=== PATIENT | female | born 1945 | race Caucasian/White ===

== ENCOUNTER 2024-12-18 15:37 | Outpatient (CLI) | payer MEDICARE, MEDICAID, SELFPAY ==
--- OUTSIDE RECORDS SUMMARY | 2024-08-04 20:00 | XMS_ITS | Continuity of Care Document ---
Author Organization [address] [place] [address] Address [address] [facility] [address] [place] [address] Phone Care Team Providers Care Clam Digger Name Role Phone Jefry Pittman DPM Unavailable Unavailable Allergies, Adverse Reactions, Alerts Substance Reaction Status Criticality morphine Active No Information Medications Medication Instructions Dosage Effective Dates (start - stop) Status Comments senna 8.6 mg tablet - Active cholecalciferol (vitamin D3) 50 mcg (2,000 unit) tablet - Active guaifenesin ER 600 mg tablet, extended release 12 hr - Active ipratropium 0.5 mg-albuterol 3 mg (2.5 mg base)/3 mL nebulization soln - Active Feverall 325 mg rectal suppository - Active ipratropium bromide 0.02 % solution for inhalation - Active acetaminophen 500 mg tablet - Active bisacodyl 5 mg tablet,delayed release - Active loratadine 10 mg tablet - Ac tive Gas Relief Extra Strength 125 mg chewable tablet - Active ergocalciferol (vitamin D2) 1,250 mcg (50,000 unit) capsule - Active Stimulant Laxative Plus 8.6 mg-50 mg tablet - Active Procedures Procedure Date PARING/CUTG B9 HYPRKER LES 1 DEBRIDE NAIL 6 OR MORE Complete Denture - Maxillary Complete Denture - Mandibular Debride mycotic, thick nails 6 or more J House/Extended Care Facility Call Try In Complete Series Of Radiographic Images N Compsve Oral Eval- New/Est Pat 2-Step Imp/Bite SBSQ NF CARE LOW MDM 20 DEBRIDEMENT OF NAIL(S) BY ANY METHOD(S); 6 OR MORE Advance Directives Directive Yes / No Effective Date File Name No Information Encounters Encounter Description Practice Location Reason(s) For Visit Diagnoses Date Provider Providers Copied on Encounter [address] [place] [address], [address] [place] [address], tel:[phone] [facility] Tinea unguiumCorns and callositiesOt her specified peripheral vascular diseases 5 Toya Capps. [address] [place] [address], [address], [place], [place], [id number], . tel:[phone] Referring Provider: Jamin Willett. [address] [place] [address], [id number], tel:[phone] [facility] ear care exam, hearing loss (chief complaint) Encounter for examination of ears and hearing without abnormal findings 5 ELMA Navarrete. Referring Provider: Jamin Roman [address] [place] [address], [address] [place] [address], tel:[phone] [facility] Complete loss of teeth, unspecified cause, unspecified class 5 Kandace Rizo . Referring Provider: Jamin Willett. [address] [place] [address], [place], [id number], tel:[phone] [facility] Tinea unguiumOther specified peripheral vascular diseases [address] [place] [address], [address], [place], [place], [id number], [place]. tel:[phone] Referring Provider: Jamin Willett. [facility], [address] [place] [address] [address], [place], [place], [id number], [place] tel:[phone] [facility] Encounter for dental examination and cleaning without abnormal findingsCompl ete loss of teeth, unspecified cause, unspecified class 5 Kandace Aguirrei. . Referring Provider: Jamin Willett. [facility] [place], [address] [place], [place] [address], [place], [place], [id number], tel:[phone] [facility] Encounter for dental examination and cleaning without abnormal findings 4 Kandace Aguirrei. . Referring Provider: Jamin Willett. [facility] NF CARE LOW MDM 20 [facility] [place], [address] [place], [place] [address], [place], [place], [id number], [place] tel:[phone] [facility] Tinea unguiumOther specified peripheral vascular diseases 4 Skribrian Capps. [address] [facility], [address], [place], [place], [id number], [place]. tel:[phone] Referring Provider: Jamin Willett. [facility], [address] [place], [place] [address], [place], [place], [id number], [place] tel:[phone] [facility] No Information [address] [place] [address], [address], [place], [place], [id number], [place]. tel:[phone] [facility], [address] [place] [address], [place], [place], [id number], [place] tel:[phone] [facility] Tinea unguiumPain in left toe(s)Pain in right toe(s) 8 Asad El. [address] [facility], [address], [place], [address], [place]. Referring Provider: Beau Lindsay. Family History Family Member Type Diagnosis Age At Onset No Information Payers Payer name Insurance type Covered republican ID Authorbetzy diaz(s) Medicare [facility] [id number] Medicaid [facility] [id number] Social History Type Description Quantity Date Captured Comments Alcohol Use Details Unknown Caffeine Use Details Unknown Tobacco Use Status No Information Smoking Status No Information Sex Female Chief Complaint And Reason For Visit No Information Reason For Referral Reason For Referral No Information Plan Of Treatment Date Type Action Status Appointment Viktoriya Montes Medicaid On ly. BOOKED Appointment Viktoriya Montes BOOKED Patient Education Toenail Fungus: Care In structions completed History Of Present Illness Encounter Date Complaint History Of Prese nt Illness No Information Functional Status Date Functional Assessmen t No Information Instructions Date Instruction Additional Infor mation Debride hypertrophic lesion right foot with #15 blade to prevent skin breakdown and for pain relief . Related to Corns and callosities Debridement and redu ction of mycotic nails all treated nails affected 6 or more, performed with 5 1/2 curved jaw double spring nail clippers Follow up 2-3 months for mycotic nail care. Related to Tinea unguium Cerumen status stabl e at present. [facility] provider to follow up in 9-12 months for ear evaluation. Related to Encounter for examination of ears and hearing without abnormal findings Debridement and redu ction of mycotic nails all treated nails affected 6 or more, performed with 5 1/2 curved jaw double spring nail clippers Follow up 2-3 months for mycotic nail care. Related to Tinea unguium Debridement and redu ction of mycotic nails all treated nails affected 6 or more, performed with 5 1/2 curved jaw double spring nail clippers, initial comprehensive lower extremity exam and evaluation performed for new patient Follow up 2-3 months for mycotic nail care. Related to Tinea unguium Toenails 1-5 b/l wer e debrided in length and thickness without incident. Follow up in 2-3 months. Related to Tinea unguium Assessments Type Assessment Date assessment Tinea unguium assessment Corns and callosities assessment Other specified peripheral vascu lar diseases Patient Care Teams Name Effective Dates (start - stop) Status Members No Information
--- OUTSIDE RECORDS SUMMARY | 2024-12-18 15:41 | XMS_ITS | Encounter Summary ---
Author Organization [facility] Address [address] [place] [address], [address] [place] [address] Care Team Providers Care Validation Consultant Name Role Phone Inga Lang WAREHOUSE REPRESENTATIVE - FLOSSER Primary Care Provider + Reason for Visit * Reason Onset Date Comments Medication Refill 07/23/2018 Encounter Details Date Type Department Care Team (Late st Contact Info) Description 07/23/2018 Refill [facility] [address] [facility] [address] [place], [place] [id number] Erin Chance APRN - [facility] [address] [place], [place] [id number] Medication Refill Social History Tobacco Use Types Packs/Day Years Used Date Smoking Tobacco: Every Day Cigarettes 0.5 40 Smokeless Tobacco: Never Alcohol Use Standard Drinks/Week Comments No 0 (1 standard drink = 0.6 oz pur e alcohol) Comments Unknown Sex and Gender Information Value Date Recorded Sex Assigned at Not on file Legal Sex Female 8:59 AM EDT Gender Identity Not on file Sexual Orientation Not on file documented as of this encounter Plan of Treatment Not on file documented as of this encounter Visit Diagnoses Diagnosis Hx of cervical spine surgery Personal history of surgery to other organs documented in this encounter Additional Health Concerns Infection Onset Date Last Indicated Resolved Time COVID-19 (Rule Out) 11/30/2019 11/30/2019 11/30/19 20 3:47 PM EDT C-diff Rule Out Comment:Order cancelled by Provider 11/30/2019 12/01/201911/06 8:48 AM EDT COVID-19 (Rule Out) 12/06/2019 12/08/2019 12/08/19 20 9:01 PM EDT COVID-19 (Rule Out) 12/04/2022 12/04/2022 12/05/19 5:41 PM EDT documented as of this encounter Care Teams Validation Consultant Relationship Specialty Start Date End Date Inga Lang, WAREHOUSE REPRESENTATIVE - FLOSSER [address] [place] [address] PCP - General Nurse Practitioner 12/04/22 documented as of this encounter
--- OUTSIDE RECORDS SUMMARY | 2024-12-18 15:41 | XMS_ITS | Encounter Summary ---
Author Organization [facility] Address [address], [address] [place] [address] Care Team Providers Care Precinct I Police Sergeant Name Role Phone Inga Lang APRN - ELECTRICAL CAD TECHNICIAN Primary Care Provider + Encounter Details Date Type Department Care Team ([facility] Contact Info) Description 02/15/[address] [place], [place] [id number] Shanae Loving, RN Social History Tobacco Use Types Packs/Day Years Used Date Smoking Tobacco: Every Day Cigarettes 0.5 40 Smokeless Tobacco: Never Alcohol Use Standard Drinks/Week Comments No 0 (1 standard drink = 0.6 oz pur e alcohol) Comments No Sex and Gender Information Value Date Recorded Sex Assigned at Not on file Legal Sex Female 8:59 AM EDT Gender Identity Not on file Sexual Orientation Not on file COVID-19 Exposure Response Date Recorded In the last month, have you been in contact with someone who was confirmed or suspected to have Coronavirus / COVID-19? No / Unsure 02/11/2021 10:00 AM EDT documented as of this encounter Plan of Treatment Not on file documented as of this encounter Visit Diagnoses Diagnosis Chronic midline low back pain without sciatica documented in this encounter Additional Health Concerns Infection Onset Date Last Indicated Resolved Time COVID-19 (Rule Out) 12/04/2022 12/04/2022 12/05/19 23 5:41 PM EDT documented as of this encounter Care Teams Prec[employer] I Police Sergeant Relationship Specialty Start Date End Date Inga Lang, BEATRIS Jiang CNP [address] [place] [address] PCP - General Nurse Practitioner 12/04/22 documented as of this encounter
--- OUTSIDE RECORDS SUMMARY | 2024-12-18 15:41 | XMS_ITS | Clinical Summary ---
Author Organization [facility] Address [address] [place] [address], [address] [place] [address] Care Team Providers Care Rubber Grinder Name Role Phone LangInga Cordelia SOCK AND STOCKING IRONER - EDI MANAGER Primary Care Provider + Allergies Active Allergy Reactions Criticality Noted Date Comments Morphine Anaphylaxis High 09/26/2017 Medications albuterol sulfate HFA 108 (90 Base) MCG/ACT inhaler Inhale 2 puffs into the lungs every 6 hours as needed for Wheezing 1 Inhaler 8 Active Nebulizers (COMP AIR COMPRESSOR NEBULIZER) MISC by Does not apply route Active acetaminophen (TYLENOL) 325 MG tablet Take 650 mg by mouth every 4 hours as needed for Pain Active fluticasone-vilante rol (BREO ELLIPTA) 100-25 MCG/INH AEPB inhaler Inhale into the lungs daily Active omeprazole (PRILOSEC) 20 MG delayed release capsule Take 2 capsules by mouth daily Active tiZANidine (ZANAFLEX) 4 MG tablet Take 1 tablet by mouth 2 times daily as needed Active olopatadine (PATANOL) 0.1 % ophthalmic solution 1 drop 2 times daily Active vitamin D (ERGOCALCIFEROL) 1.25 MG (13754 UT) CAPS capsule Take 1 capsule by mouth once a week Active loratadine (CLARITIN) 10 MG tablet Take 1 tablet by mouth daily Active dicyclomine (BENTYL) 20 MG tablet Take 1 tablet by mouth 3 times daily as needed Active docusate sodium (COLACE) 100 MG capsule Take by mouth 2 times daily Active sucralfate (CARAFATE) 1 GM tablet Take 1 tablet by mouth 3 times daily (before meals) Active fluticasone-salmete rol (ADVAIR HFA) 230-21 MCG/ACT inhaler Inhale 2 puffs into the lungs 2 times daily Active fexofenadine (JOE ALLERGY) 180 MG tablet Take 1 tablet by mouth daily Active DULoxetine (CYMBALTA) 30 MG extended release capsule Take 3 capsules by mouth daily 90 capsule 3 Active mirtazapine (REMERON) 7.5 MG tablet Take 0.5 tablets by mouth nightly 30 tablet 3 3 Active atorvastatin (LIPITOR) 40 MG tablet Take 1 tablet by mouth nightly 30 tablet 3 3 Active dilTIAZem (CARDIZEM) 30 MG tablet Take 1 tablet by mouth 3 times daily (before meals) 120 tablet 3 3 Active ondansetron (ZOFRAN-ODT) 4 MG disintegrating tablet Take 1 tablet by mouth 3 times daily as needed for Nausea or Vomiting 60 tablet 3 Active Active Problems Patient Care Coordination No te Formatting of this note migh t be different from the original. Tin 12/06/2019 PM - Erin Chance APRN 02/11/22 Pain Contract Signed: ORT Score:0 UDS 09/06/18 - compliant UDS 05/18/21 - Pt Cancelled Procedure Appt- 09/26/2018 No Showed Procedure Appt- 10/10/2018 Problem Noted Date Diagnosed Date Status post cholecystectomy 12/07/2022 History of colon polyps 12/07/2022 History of IBS 12/07/2022 Hiatal hernia 12/07/2022 Esophageal dysmotility 12/07/2022 HH (hiatus hernia) 12/07/2022 Gastroesophageal reflux disease 12/07/2022 Dysphagia 12/05/2022 Chest pain, unspecified 12/04/2022 COPD (chronic obstructive pulmonary disease) Compression fracture of L4 l umbar vertebra, closed, initial encounter 12/04/2022 Gastrointestinal hemorrhage 12/04/2022 Overview (12/07/2022): Added automatically from request for surgery [id number] Chronic pain syndrome 03/14/2021 Chronic bilateral low back pain without sciatica 03/14/2021 Pain medication agreement 03/14/2021 Respiratory failure with hypoxia and hypercapnia 11/30/2019 Duodenitis 11/30/2019 Bilateral shoulder pain 11/13/2018 Chronic neck pain 07/09/2018 Cervical radiculopathy 07/09/2018 Bilateral myofascial pain 07/09/2018 Anxiety 10/06/2017 Acute hypoxemic respiratory failure 10/03/2017 Essential hypertension COPD with acute exacerbation Chronic GERD Nausea and vomiting Hypoxia Hx of cervical spine surgery Gastroenteritis Tobacco abuse Resolved Problems Problem Noted Date Diagnosed Date Resolved Date Intractable nausea and vomiting 10/03/2017 10/06/2017 Diarrhea 10/03/2017 10/06/2017 Family History Medical History Relation Name Comments Diabetes Father Heart Disease Father Diabetes Mother Heart Disease Mother Cancer Paternal Uncle Cancer Sister Relation Name Status Comments Father Mother Paternal Uncle colon cancer Sister Alive Social History Tobacco Use Types Packs/Day Years Used Date Smoking Tobacco: Every Day Cigarettes 0.3 40 Smokeless Tobacco: Never Alcohol Use Standard Drinks/Week Comments No 0 (1 standard drink = 0.6 oz pur e alcohol) Interpersonal Safety Domain Source: IP Abuse Scr eening Answer Date Recorded Read-Only, Retired: Physical Abuse Denies 12/04/2022 Read-Only, Retired: Verbal Abuse Denies 12/04/2022 Read-Only, Retired: Emotional abuse Denies 12/04/2022 Read-Only, Retired: Financial Abuse Denies 12/04/2022 Read-Only, Retired: Sexual abuse Denies 12/04/2022 Comments No Sex and Gender Information Value Date Recorded Sex Assigned at Not on file Legal Sex Female 8:59 AM EDT Gender Identity Not on file Sexual Orientation Not on file Last Filed Vital Signs Vital Sign Reading Time Taken Comments Blood Pressure 124/78 12/08/2022 5:38 AM CDT Pulse 82 12/08/2022 5:38 AM CDT Temperature 36.8 C (98.2 F) 12/08/2022 5:38 AM CDT Respiratory Rate 18 12/08/2022 5:38 AM CDT Oxygen Saturation 92% 12/08/2022 10:45 AM CDT Inhaled Oxygen Concentration - - Weight 69.4 kg (153 lb 1 oz) 12/08/2022 1:51 AM CDT Height 171.5 cm (5' 7.5 ) 12/08/2022 11:19 AM CD T Body Mass Index 23.62 12/08/2022 1:51 AM CDT Plan of Treatment Health Maintenance Due Date Last Done Comments Depression Screen 1958 Hepatitis C screen 1964 DTaP/Tdap/Td vaccine (1 - Tdap) 1965 Pneumococcal 50+ years Vacci ne (1 of 2 - PCV) 1965 Shingles vaccine (1 of 2) 1996 DEXA (modify frequency per F RAX score) 2001 Respiratory Syncytial Virus (RSV) or age 60 yrs+ (1 - 1-dose 75+ series) 2021 Annual Wellness Visit (Medicare) 04/03/2023 Lipids 12/06/2023 12/05/2022 COVID-19 Vaccine (1 - 2023-2 5 season) 2024 Flu vaccine (#1) 12/06/2024 Lung Cancer Screening &/or Counseling Discontinued 11/30/2019 Hepatitis A vaccine Aged Out No longe r eligible based on patient's age to complete this topic Hepatitis B vaccine Aged Out No longe r eligible based on patient's age to complete this topic Hib vaccine Aged Out No longer eligi ble based on patient's age to complete this topic Meningococcal (ACWY) vaccine Aged Out No longer eligible based on patient's age to complete this topic Meningococcal B vaccine Aged Out No l onger eligible based on patient's age to complete this topic Polio vaccine Aged Out No longer elig ible based on patient's age to complete this topic Medical Devices Implanted Type Area Roll Threader Operator Device Identifier Shelf Expiration Date Model / Serial / Lot Screw/Plate/Na il/Damion Screw/Dayana te/Nail/R od Right: Ankle / 1 / Description:plate R arm Procedures Procedure Name Priority Date/Time Associated Diagnosis Comments LIPID PANEL Routine 12/05/2022 2:[address] CHEST WO CONTRAST STAT 11/30/2019 6:19 PM CDT from Last 3 Months or Most Recently Relevant to Health Maintenance Results * (ABNORMAL) Lipid Panel (12/05/2022 2:20 AM CDT) Cholesterol, Total 141(L) 160 - 199 mg/dL 12/05/2022 2:22 AM CDT [facility] Comment: <160 MG/DL=OPTIMAL 160-199 MG/DL= DESIRABLE 200-239 MG/DL=BORDERLINE-INCREASED RISK OF ATHEROSCLEROTIC CARDIOVASCULAR DISEASE > OR = 240 MG/DL-ASSOCIATED WITH AN INCREASED RISK OF ATHROSCLEROTIC CARDIOVASCULAR DISEASE Triglycerides 52 0 - 149 mg/dL 12/05/2022 2:22 AM CDT [facility] HDL 57(L) 65 - 121 mg/dL 12/05/2022 2:22 AM CDT [facility] Comment: VALUES>60 MG/DL ARE ASSOCIATED WITH A DECREASED RISK OF ATHEROSCLEROTIC CARDIOVASCULAR DISEASE LDL Calculated 74 <100 mg/dL 12/05/2022 2:22 AM T [facility] Comment: <100 MG/DL=OPITIMAL 100-129 MG/DL=DESIRABLE 130-159 MG/DL BORDERLINE=INCREASED RISK OF ATHEROSCLEROTIC CARDIOVASCULAR DISEASE > OR = 160 MG/DL=ASSOCIATED WITH AN INCREASE RISK OF ATHEROSCLEROTIC CARDIOVASCULAR DISEASE BLOOD SPECIMEN / Unknown 12/05/2022 2:20 AM CDT 12/05/2022 2:46 AM CDT Narrative [facility] - 12/05/2022 3:35 AM CDT Collection has been rescheduled by ENRIQUE at 12/05/2022 01:52 Reason: Pt using restroom Sonu Swan SOCK AND STOCKING IRONER - EDI MANAGER CHEMISTRY ORDERABLES F inal Result [facility] [address] [place] [address], [facility] [phone] * CT CHEST WO CONTRAST (11/30/2019 6:19 PM CDT) Anatomical Region Laterality Modality Chest Computed Tomogra phy Impressions 11/30/2019 6:29 PM CDT 1. Advanced centrilobular emphysema. Inflammatory thickening along the right lower lobe basal segmental airways with peripheral tree-in-bud nodularity in the right middle lobe and both lower lobes. This is most likely a mild infectious bronchiolitis. 2. No consolidation, mass or suspicious pulmonary nodule. 3. Mild fusiform aneurysm of the ascending thoracic aorta, measuring up to 4.1 cm. 4. Dense calcification at the mitral valve. Aortic valvular calcification as well to a lesser extent. Signed by Dr Max Chi on 11/30/2019 6:29 PM Narrative 11/30/2019 6:[address] CHEST WO CONTRAST 11/30/2019 4:00 PM HISTORY: Hypoxia COMPARISON: Chest x-ray dated 11/30/2019 DLP: 956 mGy cm TECHNIQUE: Serial helical tomographic images of the chest were acquired. Bone and soft tissue algorithms were provided. Coronal reformatted images were also provided for review. Automated exposure control was also utilized to decrease patient radiation dose. FINDINGS: Neck base: The imaged portion of the neck and thyroid gland is unremarkable. Lungs: Underlying centrilobular emphysema. There are several small calcified lung granulomas. Peripheral tree-in-bud nodularity identified in the right middle lobe and bilateral lower lobes, especially along the deep dependent distribution. There is wall thickening along the right lower lobe basal segmental airways with mild debris and peribronchial thickening. No consolidation, mass or suspicious nodule. No pleural effusion. Heart: The heart is normal in size. There is no pericardial effusion. Dense calcification at the mitral valve. Vessels: Mild fusiform aneurysm of the ascending thoracic aorta, measuring up to 4.1 cm. Moderate atheromatous calcification the arch. The central pulmonary arteries are nondilated. Lymph nodes: No suspicious hilar, mediastinal or axillary lymphadenopathy is appreciated. Remote granulomatous calcification. Skeletal and soft tissues: Advanced osteoarthritis change at both shoulders with intra-articular loose bodies in the left glenohumeral joint. Chest wall soft tissues are unremarkable. There is an old healed fracture deformity through the body of the sternum. Chronic L1 compression deformity is also noted. Procedure Note Max Chi MD - 11/30/2019 CT CHEST WO CONTRAST 11/30/2019 4:00 PM HISTORY: Hypoxia COMPARISON: Chest x-ray dated 11/30/2019 DLP: 956 mGy cm TECHNIQUE: Serial helical tomographic images of the chest were acquired. Bone and soft tissue algorithms were provided. Coronal reformatted images were also provided for review. Automated exposure control was also utilized to decrease patient radiation dose. FINDINGS: Neck base: The imaged portion of the neck and thyroid gland is unremarkable. Lungs: Underlying centrilobular emphysema. There are several small calcified lung granulomas. Peripheral tree-in-bud nodularity identified in the right middle lobe and bilateral lower lobes, especially along the deep dependent distribution. There is wall thickening along the right lower lobe basal segmental airways with mild debris and peribronchial thickening. No consolidation, mass or suspicious nodule. No pleural effusion. Heart: The heart is normal in size. There is no pericardial effusion. Dense calcification at the mitral valve. Vessels: Mild fusiform aneurysm of the ascending thoracic aorta, measuring up to 4.1 cm. Moderate atheromatous calcification the arch. The central pulmonary arteries are nondilated. Lymph nodes: No suspicious hilar, mediastinal or axillary lymphadenopathy is appreciated. Remote granulomatous calcification. Skeletal and soft tissues: Advanced osteoarthritis change at both shoulders with intra-articular loose bodies in the left glenohumeral joint. Chest wall soft tissues are unremarkable. There is an old healed fracture deformity through the body of the sternum. Chronic L1 compression deformity is also noted. IMPRESSION: 1. Advanced centrilobular emphysema. Inflammatory thickening along the right lower lobe basal segmental airways with peripheral tree-in-bud nodularity in the right middle lobe and both lower lobes. This is most likely a mild infectious bronchiolitis. 2. No consolidation, mass or suspicious pulmonary nodule. 3. Mild fusiform aneurysm of the ascending thoracic aorta, measuring up to 4.1 cm. 4. Dense calcification at the mitral valve. Aortic valvular calcification as well to a lesser extent. Signed by Dr Max Chi on 11/30/2019 6:29 PM Radha Jurado APRN [facility] ORDER[place]LES Final Resul t from Last 3 Months or Most Recently Relevant to Health Maintenance Insurance MEDICARE MEDICAID [place] MEDICARE Member Subscriber Plan / Payer (Ef fective 2011-Present) Name:Viktoriya Montes Relation to Subscriber:Self Name:Viktoriya Montes Payer ID:Not on file Group ID:Not on file Type:Not on file Address: [address] [place] [id number] Advance Directives Documents on File Type Date Recorded Patient Lithographic Proofer Expl anation ACP-Advance Directive 10/03/2017 9:24 AM * Full Code (Latest Code Status on File) Date Activated Date Inactivated Comments 12/04/2022 7:12 PM 12/08/2022 7:03 PM * Full Code Date Activated Date Inactivated Comments 11/30/2019 8:15 PM 12/06/2019 8:12 PM * Full Code Date Activated Date Inactivated Comments 10/03/2017 5:09 PM 10/06/2017 6:25 PM Healthcare Agents on File Name Relationship Healthcare Agent Relationshi p Communication Bonnie Garay Brother/Sister Primary Decision Maker Care Teams Rubber Grinder Relationship Specialty Start Date End Date Inga Lang, SOCK AND STOCKING IRONER - EDI MANAGER [address] [place] [address] PCP - General Nurse Practitioner 12/04/22
[2024-12-18 16:24] LABS: Hematocrit 33.2 % (37.0-47.0); Hemoglobin 10.2 g/dL (12.2-16.2); Immature Granulocytes % 0.6 %; Mean Corpuscular HGB Conc 30.7 g/dL (31.8-35.4); Mean Corpuscular Hemoglobin 29.8 pg (27.0-31.2); Mean Corpuscular Volume 97.1 fl (81-99); Nucleated Red Blood Cells % 0.2 %; Platelet Count 171 K/mm3 (142-424); Red Blood Count 3.42 M/mm3 (4.20-5.40); Red Cell Distribution Width-SD 70.6 fL; White Blood Count 9.7 K/mm3 (4.8-10.8)
[2024-12-18 22:04] LABS: Anion Gap 8.4 mEq/L (5-15); Blood Urea Nitrogen 16 mg/dl (7-17); Calcium 8.3 mg/dl (8.4-10.2); Carbon Dioxide 31 mmol/L (22.0-30.0); Chloride 99 mmol/L (98-107); Creatinine,Serum 0.50 mg/dl (0.52-1.04); Estimated Glomerular Filt Rate 120 ml/min (>60); GFR (African American) 145 ML/MIN (>60); Glucose 94 mg/dl (74-100); Potassium 3.4 mmoL/L (3.5-5.1); Sodium 135 mmol/L (136-145)
== END 2024-12-18 23:59 | disposition home or self-care (01) ==
LOC: LAB.DROPOF 15:40
PROVIDERS: PCP Nurse Practitioner Family; Visit Provider Nurse Practitioner Family
DX: D64.9 Anemia, unspecified (principal); E87.6 Hypokalemia
CPT/HCPCS: 80048; 85025